=== PATIENT | male | born 1980 | race Caucasian/White ===

== ENCOUNTER 2020-04-10 18:21 | Emergency (ER) | payer BC, MEDICAID, SELFPAY ==
--- NOTE | 2020-04-10 18:26 | ED.GENADULT ---
HPI - General Adult General Chief complaint: Extremity Injury, Lower Stated complaint: right foot pain Time Seen by Provider: 04/10/20 18:43 Source: patient Mode of arrival: ambulatory Limitations: no limitations History of Present Illness HPI narrative: 39-year-old male patient presents to the [facility] with complaints of right toe pain that started approximately 1 week ago. Patient states he does have a history of gout and does take allopurinol. Patient denies seeing anything for this specific flareup. Patient denies any fevers. Denies any injury to the foot or toe that he is aware of. Related Data Home Medications Medication Instructions Recorded Confirmed allopurinol 04/10/20 Allergies Allergy/AdvReac Type Severity Reaction Status Date / Time No Known Allergies Allergy Verified 04/10/20 18:41 Review of Systems Review of Systems: Narrative: CONSTITUTIONAL: Denies fever, chills, or sweats. EYES: Denies visual changes, redness, or discharge. ENT: Denies rhinorrhea, congestion, sore throat, or otalgia. CARDIOVASCULAR: Denies chest pain, palpitations, or edema. RESPIRATORY: Denies cough or dyspnea. GASTROINTESTINAL: Denies abdominal pain, nausea, vomiting, or diarrhea. GENITOURINARY: Denies dysuria or hematuria. SKIN: Denies rash or itching. MUSCULOSKELETAL: Denies back pain, joint pain, or myalgia. Positive right great toe pain x1 week NEUROLOGIC: Denies headache, numbness, or weakness. PSYCHIATRIC: Denies anxiety or depression. PMFSH Comments At the time of my signature I agree with nursing past medical history, surgical, social, and family history. There is no relevant family history pertinent to the presenting complaint. Exam Narrative: Exam Narrative: GENERAL: Well-appearing, well-nourished, and in no acute distress. HEAD: Normocephalic, atraumatic. EYES: PERRLA and EOMI. ENT: Nares clear, no rhinorrhea or epistaxis. Mucous membranes moist. NECK: Supple. No lymphadenopathy CHEST: Clear to auscultation. No respiratory distress. HEART: Regular rate and rhythm. No murmur heard. Normal peripheral pulses. ABDOMEN: Soft, nontender, nondistended, normal active bowel sounds. EXTREMITIES: Patient able to bear weight and ambulate without pain. No surface trauma, ecchymosis, erythema, lesions, ulcers or break in skin integrity. The R foot is without obvious asymmetry or deformity when compared to the L foot. Patient has tenderness slight erythema noted to the right great toe. No bony step-off, nontender to palpation over the toes, midfoot or hindfoot or sole. Normal plantar/dorsiflexion, inversion/eversion. Distal motor and neurovascular status are intact SKIN: Warm, dry, no rash. NEURO: No focal deficits. Alert and oriented x3. Course Vital Signs Vital signs: Vital Signs Temperature 36.7 C 04/10/20 18:35 Pulse Rate 72 04/10/20 18:35 Respiratory Rate 16 04/10/20 18:35 Blood Pressure 136/98 H 04/10/20 18:35 Pulse Oximetry 98 04/10/20 18:35 Temperature 36.7 C 04/10/20 18:35 Pulse Rate 72 04/10/20 18:35 Respiratory Rate 16 04/10/20 18:35 Blood Pressure 136/98 H 04/10/20 18:35 Pulse Oximetry 98 04/10/20 18:35 Vital signs reviewed. Medical Decision Making Differential Diagnosis Differential Diagnosis: Differential diagnosis: Foot fracture, crush injury, compartment syndrome, contusion, sprain, tendinitis,lisfranc sprain or fracture, avulsion fracture, grown toenail, diabetic ulcer. Discussed with patient that we will go ahead and treat his gout flareup with some medication. Discussed with patient that when he is run out of the medication and if he still has a flareup he can take some ibuprofen. Discussed with patient he needs to be altering his diet for this is usually what causes the gout flareups. Discussed with patient if he continues have issues and he needs to see his primary doctor. Patient verbalized understanding of this denies any other questions or concerns at [facility]
[2020-04-10 18:35] VITALS: BP 136/98; PULSE 72; RESP 16; TEMP 36.7; O2SAT 98
== END 2020-04-10 18:55 | disposition home or self-care (01) ==
PROVIDERS: Emergency Provider Nurse Practitioner Family
DX: M10.9 Gout, unspecified (principal)
CPT/HCPCS: 99203; G0463